=== PATIENT | male | born 1970 | race Caucasian/White ===

== ENCOUNTER 2023-06-12 21:03 | Emergency (ER) | payer OTHER ==
[~2023-06-12] VITALS: Ht 172.7 cm; Wt 78.5 kg
[2023-06-12 21:12] VITALS: BP_SYST 131; PULSE 77; RESP 17; O2SAT 98
[2023-06-12] MEDS ORDERED: IBUPROFEN 600 MG TABLET PO ONE (21:30)
[2023-06-12 23:30] VITALS: BP_SYST 128; PULSE 75; RESP 18; TEMP 97.8; O2SAT 98
[2023-06-12] MEDS ORDERED: NAPR-690 PO (23:33)
== END 2023-06-12 23:30 | disposition home or self-care (01) ==
LOC: SED 21:03
DX: S93.402A Sprain of unspecified ligament of left ankle, initial encounter (principal); Z79.899 Other long term (current) drug therapy; X50.1XXA Overexertion from prolonged static or awkward postures, initial encounter; Y93.89 Activity, other specified; Y92.89 Other specified places as the place of occurrence of the external cause; Y99.8 Other external cause status
CPT/HCPCS: 99283

== ENCOUNTER 2024-01-26 19:50 | Emergency (ER) | payer OTHER ==
[~2024-01-26] VITALS: Ht 172.7 cm; Wt 77.1 kg
[~2024-01-26 19:50] MED LIST: NAPR-690 PO
[2024-01-26 19:59] VITALS: BP_SYST 150; PULSE 88; RESP 19; TEMP 97.4; O2SAT 98
[2024-01-26] MEDS: EPINEPHRINE HCL/PF 1 MG/ML AMP IM ONE (20:13)
[2024-01-26] MEDS: NACL 0.9% 1,000 ML IV ONE (20:42)
[2024-01-26] MEDS: METHYLPREDNISOLONE SOD SUCC 40 MG/ML VIAL IVP ONE (20:43)
[2024-01-26] MEDS: FAMOTIDINE PF 20 MG/2 ML VIAL IVP ONE (20:45)
[2024-01-26] MEDS: DIPHENHYDRAMINE INJ 50 MG/ML VIAL IVP ONE (20:45)
[2024-01-26] MEDS ORDERED: BEN50 PO (20:58)
[2024-01-26] MEDS ORDERED: FAMO20TA8 PO (20:58)
[2024-01-26] MEDS ORDERED: EPIN0.3P3 IM (20:59)
[2024-01-26] MEDS ORDERED: LORazepam 2 MG/ML VIAL ONE (21:10)
[2024-01-26] MEDS: LORazepam 2 MG/ML VIAL IVP ONE (21:16)
[2024-01-26 23:44] LABS: BASOPHILS % (AUTO) 0.2 % (0.0-2.0); EOSINOPHILS % (AUTO) 0.3 % (0.0-4.0); HEMATOCRIT 42.1 % (36-54); HEMOGLOBIN 14.4 g/dL (14.0-18.0); LYMPHOCYTES # (AUTO) 0.7 K/uL (1.0-5.5); LYMPHOCYTES % (AUTO) 6.5 % (20.5-51.5); MEAN CORPUSCULAR HEMOGLOBIN 30 pg (27-31); MEAN CORPUSCULAR HGB CONC 34 % (32-36); MEAN CORPUSCULAR VOLUME 88 fL (79.0-98.0); MONOCYTES # (AUTO) 0.1 K/uL (0.0-1.0); MONOCYTES % (AUTO) 1.4 % (1.7-9.3); NEUTROPHILS # (AUTO) 9.7 K/uL (1.8-7.7); NEUTROPHILS % (AUTO) 91.6 % (40.0-70.0); PLATELET COUNT (AUTO) 256 K/uL (130-430); RED BLOOD CELL COUNT(AUTO) 4.78 MIL/uL (4.2-6.2); RED CELL DISTRIBUTION WIDTH 13.3 % (9.0-15.0); WHITE BLOOD COUNT (AUTO) 10.6 K/uL (4.8-10.8)
[2024-01-26] MEDS ORDERED: OLANZapine 10 MG TAB.RAPDIS ONE (23:45)
[2024-01-27] MEDS: OLANZapine 5 MG TAB.RAPDIS PO ONE
[2024-01-27 00:05] LABS: ANION GAP 5 (5-15); CALCIUM 8.9 mg/dL (8.4-11.0); CARBON DIOXIDE 27 mmol/L (23-29); CHLORIDE 109 mmol/L (98-107); GFR AFRICAN AMERICAN 58 mL/min (>90); GLUCOSE 117 mg/dL (74-106); POTASSIUM 3.9 mmol/L (3.5-5.1); SODIUM SERUM 141 mmol/L (136-145); UREA NITROGEN, BLOOD 27 mg/dL (8-21)
[2024-01-27 00:10] LABS: GFR NON AFRICAN-AMERICAN 48 mL/min (>90)
[2024-01-27 00:50] LABS: BILIRUBIN,URINE NEGATIVE (NEGATIVE); BLOOD, URINE NEGATIVE (NEGATIVE); CLARITY/URINE CLEAR (CLEAR); COLOR,URINE YELLOW (YELLOW); GLUCOSE,URINE NEGATIVE (NEGATIVE); KETONES,URINE NEGATIVE (NEGATIVE); LEUKOCYTE ESTERASE ,URINE NEGATIVE (NEGATIVE); NITRITE, URINE NEGATIVE (NEGATIVE); PROTEIN URINE NEGATIVE (NEGATIVE); UROBILINOGEN,URINE 0.2 (0.2-1.0)
[2024-01-27 00:59] LABS: BARBITURATE, URINE NEGATIVE (NEG <=200); BENZODIAZEPINE, URINE POSITIVE (NEG <=150); CANNABINOID, URINE NEGATIVE (NEG <=50); COCAINE, URINE NEGATIVE (NEG <=150); METHAMPHETAMINES SCREEN,URINE NEGATIVE (NEG <=500); OPIATE, URINE NEGATIVE (NEG <=100); PHENCYCLIDINE SCREEN,URINE NEGATIVE (NEG <=25); URINE AMPHETAMINE NEGATIVE (NEG <=500); URINE METHADONE NEGATIVE (NEG <=200); URINE OXYCODONE SCREEN NEGATIVE (NEG <=100)
[2024-01-27 01:00] LABS: UR TRICYCLIC ANTIDEPRESSANTS NEGATIVE (NEG <=300)
[2024-01-27] MEDS ORDERED: PRED20TA PO (01:38)
[2024-01-27 01:51] VITALS: BP_SYST 114; PULSE 72; RESP 19; TEMP 97.2; O2SAT 96
[2024-01-27] MEDS ORDERED: BEN50 PO (02:57)
[2024-01-27] MEDS ORDERED: FAMO20TA8 PO (02:57)
[2024-01-27] MEDS ORDERED: EPIN0.3P3 IM (02:57)
[2024-01-28] MEDS ORDERED: CETI10CA PO (06:54)
[2024-01-28] MEDS ORDERED: HYDR50TA61 PO (06:57)
== END 2024-01-27 01:51 | disposition home or self-care (01) ==
LOC: SED 19:50
DX: L50.9 Urticaria, unspecified (principal); T78.49XA Other allergy, initial encounter; R45.1 Restlessness and agitation; G25.81 Restless legs syndrome; F41.9 Anxiety disorder, unspecified; Z79.899 Other long term (current) drug therapy; Z79.2 Long term (current) use of antibiotics; X58.XXXA Exposure to other specified factors, initial encounter
CPT/HCPCS: 80307; 80048; 81001; 83880; 85025; 84484; 36415; 93005; 99285; 96361; 96374; 96375; 96372; 81003; G0482; J1200; J0171; J3490; J2060; J1030; J7030; J1010

== ENCOUNTER 2024-01-28 04:54 | Emergency (ER) | payer OTHER ==
[~2024-01-28] VITALS: Ht 172.7 cm; Wt 78.5 kg
[~2024-01-28 04:54] MED LIST changes: +BEN50 PO; +EPIN0.3P3 IM; +FAMO20TA8 PO; +PRED20TA PO
[2024-01-28 05:05] VITALS: BP_SYST 131; PULSE 84; RESP 18; TEMP 97.7; O2SAT 98
[2024-01-28] MEDS: DIPHENHYDRAMINE INJ 50 MG/ML VIAL IVP ONE (05:50)
[2024-01-28] MEDS: FAMOTIDINE PF 20 MG/2 ML VIAL IVP ONE (05:51)
[2024-01-28] MEDS: methylPREDNISolone SOD SUCC/PF 62.5 MG/ML VIAL IVP ONE (05:51)
[2024-01-28] MEDS: EPINEPHRINE HCL/PF 1 MG/ML AMP IM ONE (06:41)
[2024-01-28] MEDS ORDERED: CETI10CA PO (06:54)
[2024-01-28] MEDS ORDERED: HYDR50TA61 PO (06:57)
[2024-01-28 07:53] VITALS: BP_SYST 109; PULSE 69; RESP 18; O2SAT 99
== END 2024-01-28 07:47 | disposition home or self-care (01) ==
LOC: SED 04:54
DX: L50.9 Urticaria, unspecified (principal); Z79.899 Other long term (current) drug therapy; Z79.2 Long term (current) use of antibiotics
CPT/HCPCS: 99284; 96374; 96375; 96372; J1200; J0171; J3490; J2930